=== PATIENT | female | born 1955 | race Caucasian/White ===

== ENCOUNTER 2019-12-02 08:15 | Inpatient (IN) ==
[2019-12-02] MEDS ORDERED: Ondansetron 4 MG/2 ML VIAL IVP ONE (08:27)
[2019-12-02] MEDS ORDERED: 0.9 % Sodium Chloride 1,000 ML IVC ONE (08:27)
[2019-12-02] MEDS ORDERED: Morphine Sulfate 2 MG/ML SYRINGE IVP ONE ×3 (08:27→21:07)
[2019-12-02 08:42] LABS: Basophils # 0.2 K/mcL (0.0-0.2); Basophils % 0.7 %; Eosinophils # 0.1 K/mcL (0.0-0.6); Eosinophils % 0.4 %; Hemoglobin 8.9 g/dL (11.5-15.4); Lymphocytes # 0.7 K/mcL (0.6-4.6); Mean Corpuscular HGB Conc 29.7 g/dL (31.6-35.5); Mean Corpuscular Hemoglobin 26.7 pg (28.0-33.3); Mean Corpuscular Volume 90.1 fL (83.0-100.0); Mean Platelet Volume 9.5 fL (9.4-12.4); Monocytes # 1.3 K/mcL (0.0-1.3); Neutrophils # 19.6 K/mcL (1.6-8.9); Platelet Count 541 K/mcL (140-400); Red Blood Count 3.33 M/mcL (3.82-4.97); Red Cell Distribution Width 14.7 % (11.5-14.5); Segmented Neutrophils % 88.9 %
[2019-12-02] MEDS ORDERED: Isovue-370 500 ML BOTTLE IVP ONE (08:51)
[2019-12-02 09:02] LABS: Albumin 3.2 g/dL (3.5-5.7); Albumin/Globulin Ratio 1.1 (1.1-2.2); Bilirubin,Indirect 0.3 mg/dL (0.0-1.0); Bilirubin,Total 0.3 mg/dL (0.3-1.0); Calcium 10.4 mg/dL (8.6-10.3); Globulin 2.9 g/dL (2.4-3.5); Total Protein 6.1 g/dL (6.4-8.9); Troponin I 0.2 ng/mL (< 0.04)
[2019-12-02 09:05] LABS: Bilirubin,Urine Negative (Negative); Blood,Urine Negative (Negative); Clarity,Urine Clear (Clear); Color,Urine Light-Yellow (Yellow); Glucose,Urine (UA) >=1000 mg/dL (Normal); Hyaline Casts,Urine Few per lpf (None Seen); Ketones,Urine 10 mg/dL (Negative); Leukocyte Esterase,Urine Trace (Negative); Mucus,Urine Few per lpf (None-Few); Nitrite,Urine Negative (Negative); Protein,Urine 50 mg/dL (Neg-Trace); RBC,Urine 0-3 per hpf (0-3); Renal Epithelial Cells,Urine Moderate per hpf (None-Few); Specific Gravity,Urine 1.019 (1.010-1.025); Squamous Epithelial Cell,Urine Few per hpf (None-Few); Urobilinogen,Urine Normal (Normal)
[2019-12-02] MEDS ORDERED: Aspirin 325 MG TABLET PO ONE (09:13)
[2019-12-02] MEDS ORDERED: Morphine Sulfate 2 MG/ML SYRINGE ONE (11:47)
[2019-12-02] MEDS ORDERED: Naloxone 0.4 MG/ML INJ IVP PRN (11:58)
[2019-12-02] MEDS ORDERED: diazePAM 2 MG TABLET PO PRN (12:00)
[2019-12-02] MEDS ORDERED: *HR* HYDROmorphone 2 MG TABLET PO PRN (12:00)
[2019-12-02] MEDS ORDERED: *HR* FentaNYL PATCH 50 MCG PATCH TD SCH (12:00)
[2019-12-02] MEDS ORDERED: D5% in Water 1,000 ML IVC PRN (12:52)
[2019-12-02] MEDS ORDERED: *HR* Dextrose 50 % in Water (Vial) 50 ML VIAL IVP PRN (12:52)
[2019-12-02] MEDS ORDERED: Dextrose Gel 15 GM/37.5 ML TUBE PO PRN ×2 (12:52)
[2019-12-02] MEDS ORDERED: Insulin DETEMIR 100 UNIT/ML X5UNITS SQ ONE (13:23)
[2019-12-02] MEDS: PATIENT TAKING SQ SCH (13:58)
[2019-12-02] MEDS ORDERED: *HR* Heparin 5,000 UNIT/ML VIAL IVP ONE (14:53)
[2019-12-02] MEDS ORDERED: *HR* Heparin 5,000 UNIT/ML VIAL IVP PRN ×2 (14:53)
[2019-12-02 14:56] LABS: Carcinoembryonic Antigen 836.4 ng/mL (Less than 5.0); Iron < 10 mcg/dL (50-170); Transferrin 228 mg/dL (203-362)
[2019-12-02] MEDS: Heparin 25,000 UNIT/250 ML D5W 25,000 UNIT/250 ML IV.SOLN IVC SCH (16:46)
[2019-12-02] MEDS: Piperacillin/Tazobactam 3.375 GM in 0.9 % Sodium Chloride Mini Bag 100 ML IVPB SCH ×2 (16:51→23:42)
[2019-12-02] MEDS ORDERED: SODIUM CHLORIDE/NAHCO3/KCL/PEG 4,000 ML SOLN.RECON PO ONE (17:00)
[2019-12-02] MEDS: Ringers Solution, Lactated 1,000 ML IVC SCH (21:00)
[2019-12-02] MEDS ORDERED: *HR* HYDROmorphone 2 MG TABLET PO ONE (21:00)
[2019-12-02] MEDS: rOPINIRole 1 MG TABLET PO SCH (21:21)
[2019-12-02] MEDS: traZODone 50 MG TABLET PO SCH (21:21)
[2019-12-02] MEDS ORDERED: Aspirin 81 MG TAB.CHEW PO ONE (23:25)
[2019-12-03 00:16] LABS: Acinetobacter baumannii by PCR Not Detected (Not Detect); Candida albicans by PCR Not Detected (Not Detect); Candida glabrata by PCR Not Detected (Not Detect); Candida krusei by PCR Not Detected (Not Detect); Candida parapsilosis by PCR Not Detected (Not Detect); Candida tropicalis by PCR Not Detected (Not Detect); Enterobacter cloacae Cmplx PCR Not Detected (Not Detect); Enterobacteriaceae by PCR Not Detected (Not Detect); Enterococcus by PCR Not Detected (Not Detect); Escherichia coli by PCR Not Detected (Not Detect); Klebsiella oxytoca by PCR Not Detected (Not Detect); Klebsiella pneumoniae by PCR Not Detected (Not Detect); Proteus by PCR Not Detected (Not Detect); Pseudomonas aeruginosa by PCR Not Detected (Not Detect); Serratia marcescens by PCR Not Detected (Not Detect); Staphylococcus aureus by PCR Not Detected (Not Detect); Staphylococcus by PCR Not Detected (Not Detect); Streptococcus agalactiae(B)PCR Not Detected (Not Detect); Streptococcus by PCR DETECTED (Not Detect); Streptococcus pneumoniae PCR Not Detected (Not Detect); Streptococcus pyogenes (A) PCR Not Detected (Not Detect); blaKPC Carbapenem-Resist Gene Not Detected (Not Detect); mecA Methicillin-Resist Gene Not Detected (Not Detect); vanA/B Vancomycin-Resist Genes Not Detected (Not Detect)
[2019-12-03] MEDS ORDERED: Morphine Sulfate 2 MG/ML SYRINGE IVP ONE (01:32)
[2019-12-03 01:34] LABS: Basophils # 0.2 K/mcL (0.0-0.2); Basophils % 0.8 %; Eosinophils # 0.2 K/mcL (0.0-0.6); Eosinophils % 0.9 %; Hematocrit 30.4 % (35.3-44.9); Hemoglobin 9.1 g/dL (11.5-15.4); Immature Granulocytes % 0.7 % (0-4); Lymphocytes # 1.9 K/mcL (0.6-4.6); Lymphocytes % 8.3 %; Mean Corpuscular HGB Conc 29.9 g/dL (31.6-35.5); Mean Corpuscular Hemoglobin 26.6 pg (28.0-33.3); Mean Corpuscular Volume 88.9 fL (83.0-100.0); Mean Platelet Volume 9.3 fL (9.4-12.4); Monocytes # 1.7 K/mcL (0.0-1.3); Monocytes % 7.7 %; Neutrophils # 18.3 K/mcL (1.6-8.9); Platelet Count 616 K/mcL (140-400); Red Blood Count 3.42 M/mcL (3.82-4.97); Red Cell Distribution Width 14.6 % (11.5-14.5); Segmented Neutrophils % 81.6 %; White Blood Count 22.4 K/mcL (4.3-11.1)
[2019-12-03 01:47] LABS: Prothrombin Time 11.3 Seconds (9.4-12.1)
[2019-12-03 01:49] LABS: Calcium 9.6 mg/dL (8.6-10.3); Magnesium 1.9 mg/dL (1.6-2.6); Potassium 4.1 mEq/L (3.5-5.1)
[2019-12-03 02:17] LABS: Folate > 22.3 ng/mL (3.0-16.0); Vitamin B12 1247 pg/mL (250-1100)
[2019-12-03] MEDS: D5% in 0.9% NACL 1,000 ML IVC SCH (06:03)
[2019-12-03] MEDS: Ringers Solution, Lactated 1,000 ML IVC SCH (06:04)
[2019-12-03] MEDS: Ondansetron 4 MG/2 ML VIAL IVP PRN (10:05)
[2019-12-03] MEDS: predniSONE 10 MG TABLET PO SCH (10:36)
[2019-12-03] MEDS: Piperacillin/Tazobactam 3.375 GM in 0.9 % Sodium Chloride Mini Bag 100 ML IVPB SCH ×2 (10:38→17:30)
[2019-12-03] MEDS: Morphine Sulfate 2 MG/ML SYRINGE IVP PRN ×3 (11:05→21:34)
[2019-12-03] MEDS: PATIENT TAKING SQ SCH (12:11)
[2019-12-03] MEDS: Aspirin Enteric Coated 81 MG Tablet PO SCH (16:03)
[2019-12-03] MEDS: Insulin LISPRO 300 UNITS/3 ML VIAL SQ SCH ×2 (17:37→17:44)
[2019-12-03] MEDS ORDERED: Insulin LISPRO 300 UNITS/3 ML VIAL SQ SCH (21:00)
[2019-12-03] MEDS: traZODone 50 MG TABLET PO SCH (21:38)
[2019-12-03] MEDS: rOPINIRole 1 MG TABLET PO SCH (21:56)
[2019-12-04] MEDS: Piperacillin/Tazobactam 3.375 GM in 0.9 % Sodium Chloride Mini Bag 100 ML IVPB SCH ×3 (01:01→18:11)
[2019-12-04 02:06] LABS: Basophils # 0.1 K/mcL (0.0-0.2); Basophils % 0.6 %; Eosinophils # 0.1 K/mcL (0.0-0.6); Eosinophils % 0.4 %; Hematocrit 27.3 % (35.3-44.9); Hemoglobin 8.2 g/dL (11.5-15.4); Immature Granulocytes % 0.8 % (0-4); Mean Corpuscular Hemoglobin 26.7 pg (28.0-33.3); Mean Corpuscular Volume 88.9 fL (83.0-100.0); Mean Platelet Volume 9.4 fL (9.4-12.4); Monocytes # 1.1 K/mcL (0.0-1.3); Monocytes % 6.9 %; Neutrophils # 14.1 K/mcL (1.6-8.9); Platelet Count 543 K/mcL (140-400); Red Blood Count 3.07 M/mcL (3.82-4.97); Red Cell Distribution Width 14.6 % (11.5-14.5); Segmented Neutrophils % 85.3 %; White Blood Count 16.5 K/mcL (4.3-11.1)
[2019-12-04 02:23] LABS: Calcium 8.4 mg/dL (8.6-10.3); Magnesium 1.8 mg/dL (1.6-2.6); Phosphorous 2.2 mg/dL (2.7-4.5); Potassium 3.9 mEq/L (3.5-5.1)
[2019-12-04] MEDS: D5% in 0.9% NACL 1,000 ML IVC SCH ×2 (03:15→22:49)
[2019-12-04] MEDS: Heparin 25,000 UNIT/250 ML D5W 25,000 UNIT/250 ML IV.SOLN IVC SCH ×2 (03:16→10:26)
[2019-12-04] MEDS: Morphine Sulfate 2 MG/ML SYRINGE IVP PRN ×2 (04:56→10:59)
[2019-12-04] MEDS: Aspirin Enteric Coated 81 MG Tablet PO SCH (08:37)
[2019-12-04] MEDS: predniSONE 10 MG TABLET PO SCH (08:37)
[2019-12-04] MEDS: Insulin LISPRO 300 UNITS/3 ML VIAL SQ SCH ×3 (08:38→18:12)
[2019-12-04] MEDS ORDERED: Spironolactone 25 MG TABLET PO SCH (09:00)
[2019-12-04] MEDS: Ondansetron 4 MG/2 ML VIAL IVP PRN (11:09)
[2019-12-04] MEDS ORDERED: Morphine Sulfate Oral CONC 10 MG/0.5 ML ORAL.SYG SL PRN ×2 (11:20→20:42)
[2019-12-04] MEDS ORDERED: *HR* FentaNYL PATCH 75 MCG PATCH TD SCH ×2 (12:00→20:30)
[2019-12-04] MEDS ORDERED: *HR* FentaNYL (PF) 100 MCG/2 ML VIAL ONE ×2 (12:55→17:49)
[2019-12-04] MEDS ORDERED: 0.9 % Sodium Chloride 500 ML ONE (12:56)
[2019-12-04] MEDS ORDERED: *HR* Midazolam HCl 2 MG/2 ML VIAL ONE (12:56)
[2019-12-04] MEDS ORDERED: *HR* FentaNYL (PF) 100 MCG/2 ML VIAL IVP ONE (13:01)
[2019-12-04] MEDS ORDERED: *HR* Midazolam HCl 2 MG/2 ML VIAL IVP ONE (13:01)
[2019-12-04] MEDS ORDERED: Lidocaine -MPF 2% 2 ML VIAL ONE ×2 (13:56→17:49)
[2019-12-04] MEDS ORDERED: *HR* EPINEPHrine 1 MG/10 ML SYRINGE ONE (13:57)
[2019-12-04] MEDS: PATIENT TAKING SQ SCH (16:24)
[2019-12-04] MEDS ORDERED: CefOXitin 1,000 MG VIAL ONE (17:21)
[2019-12-04] MEDS ORDERED: Ondansetron 4 MG/2 ML VIAL ONE (17:49)
[2019-12-04] MEDS ORDERED: *HR* Propofol 200 MG/20 ML VIAL IVP ONE (17:49)
[2019-12-04] MEDS ORDERED: *HR* Succinylcholine 200 MG/10 ML VIAL IVP ONE (17:49)
[2019-12-04] MEDS ORDERED: Dexamethasone 4 MG/ML VIAL ONE (17:49)
[2019-12-04] MEDS ORDERED: *HR* Rocuronium Bromide 50 MG/5 ML VIAL ONE (17:49)
[2019-12-04] MEDS ORDERED: *HR* HYDROMORPHONE 2 MG/ML VIAL ONE (17:51)
[2019-12-04] MEDS ORDERED: *HR* PHENYLEPHRINE 1,000 MCG/10 ML SYRINGE IVP ONE (17:52)
[2019-12-04] MEDS ORDERED: Heparin 1,000 UNITS/500 mL 500 ML ONE (17:56)
[2019-12-04] MEDS ORDERED: Ondansetron 4 MG/2 ML VIAL IVP ONE ×2 (19:15→20:42)
[2019-12-04] MEDS ORDERED: *HR* Promethazine 25 MG/ML VIAL IVP PRN ×2 (19:15→20:42)
[2019-12-04] MEDS: *HR* HYDROmorphone PF 0.5 MG/0.5 ML SYRINGE IVP PRN ×2 (19:53→20:03)
[2019-12-04] MEDS ORDERED: Ondansetron 4 MG/2 ML VIAL IVP PRN (20:42)
[2019-12-04] MEDS ORDERED: *HR* Dextrose 50 % in Water (Vial) 50 ML VIAL IVP PRN (20:42)
[2019-12-04] MEDS ORDERED: Dextrose Gel 15 GM/37.5 ML TUBE PO PRN ×2 (20:42)
[2019-12-04] MEDS ORDERED: diazePAM 2 MG TABLET PO PRN (20:42)
[2019-12-04] MEDS ORDERED: Naloxone 0.4 MG/ML INJ IVP PRN (20:42)
[2019-12-04] MEDS ORDERED: D5% in Water 1,000 ML IVC PRN (20:42)
[2019-12-04] MEDS ORDERED: *HR* HYDROmorphone PF 0.5 MG/0.5 ML SYRINGE IVP PRN (20:42)
[2019-12-04] MEDS ORDERED: Insulin LISPRO 300 UNITS/3 ML VIAL SQ SCH (21:00)
[2019-12-04] MEDS ORDERED: Metoprolol XL (24 HR) Succ 25 MG TAB.ER.24H PO SCH ×2 (21:00)
[2019-12-04] MEDS: INSULIN PUMP SQ SCH (22:12)
[2019-12-04] MEDS: traZODone 50 MG TABLET PO SCH (23:05)
[2019-12-04] MEDS: rOPINIRole 1 MG TABLET PO SCH (23:05)
[2019-12-04] MEDS: *HR* FentaNYL PATCH 75 MCG PATCH TD SCH (23:57)
[2019-12-05] MEDS: Insulin DETEMIR 100 UNIT/ML X5UNITS SQ SCH ×2 (00:09→20:04)
[2019-12-05] MEDS: Insulin LISPRO 300 UNITS/3 ML VIAL SQ SCH ×5 (00:10→23:58)
[2019-12-05] MEDS: *HR* Metoprolol 5 MG/5 ML VIAL IVP SCH ×2 (00:11→06:00)
[2019-12-05] MEDS: Piperacillin/Tazobactam 3.375 GM in 0.9 % Sodium Chloride Mini Bag 100 ML IVPB SCH ×4 (00:16→23:59)
[2019-12-05 03:20] LABS: Basophils % 0.2 %; Lymphocytes % 2.9 %; Mean Platelet Volume 9.4 fL (9.4-12.4); Monocytes % 5.2 %; Red Cell Distribution Width 14.6 % (11.5-14.5)
[2019-12-05 03:22] LABS: Hematocrit 27.3 % (35.3-44.9); Hemoglobin 7.8 g/dL (11.5-15.4); Immature Granulocytes % 0.7 % (0-4); Lymphocytes # 0.7 K/mcL (0.6-4.6); Mean Corpuscular HGB Conc 28.6 g/dL (31.6-35.5); Mean Corpuscular Hemoglobin 26.9 pg (28.0-33.3); Mean Corpuscular Volume 94.1 fL (83.0-100.0); Monocytes # 1.2 K/mcL (0.0-1.3); Neutrophils # 20.3 K/mcL (1.6-8.9); Platelet Count 450 K/mcL (140-400); White Blood Count 22.3 K/mcL (4.3-11.1)
[2019-12-05 03:37] LABS: Calcium 7.8 mg/dL (8.6-10.3); Potassium 4.2 mEq/L (3.5-5.1)
[2019-12-05 04:15] LABS: Hypochromasia Present (Not Present); Platelet Estimate Increased (Normal)
[2019-12-05] MEDS ORDERED: Insulin LISPRO 300 UNITS/3 ML VIAL SQ SCH (07:30)
[2019-12-05] MEDS: predniSONE 10 MG TABLET PO SCH (07:53)
[2019-12-05] MEDS: Aspirin Enteric Coated 81 MG Tablet PO SCH (07:53)
[2019-12-05] MEDS: Metoprolol XL (24 HR) Succ 25 MG TAB.ER.24H PO SCH (07:54)
[2019-12-05] MEDS ORDERED: Spironolactone 25 MG TABLET PO SCH (09:00)
[2019-12-05] MEDS ORDERED: predniSONE 10 MG TABLET PO SCH (09:00)
[2019-12-05] MEDS ORDERED: Prochlorperazine 10 MG/2 ML VIAL IVP ONE (09:30)
[2019-12-05] MEDS: Morphine Sulfate Oral CONC 10 MG/0.5 ML ORAL.SYG SL PRN (09:39)
[2019-12-05] MEDS: D5% in 0.9% NACL 1,000 ML IVC SCH (19:20)
[2019-12-05] MEDS: INSULIN PUMP SQ SCH (20:05)
[2019-12-05] MEDS: rOPINIRole 1 MG TABLET PO SCH (20:08)
[2019-12-05] MEDS: traZODone 50 MG TABLET PO SCH (20:09)
[2019-12-06] MEDS: Morphine Sulfate Oral CONC 10 MG/0.5 ML ORAL.SYG SL PRN ×4 (00:05→23:15)
[2019-12-06 01:26] LABS: Basophils # 0.1 K/mcL (0.0-0.2); Basophils % 0.4 %; Eosinophils % 0.1 %; Hematocrit 27.3 % (35.3-44.9); Immature Granulocytes % 0.7 % (0-4); Lymphocytes # 0.8 K/mcL (0.6-4.6); Lymphocytes % 3.8 %; Mean Corpuscular HGB Conc 29.3 g/dL (31.6-35.5); Mean Corpuscular Hemoglobin 26.7 pg (28.0-33.3); Mean Platelet Volume 9.4 fL (9.4-12.4); Monocytes # 1.4 K/mcL (0.0-1.3); Monocytes % 6.5 %; Neutrophils # 18.8 K/mcL (1.6-8.9); Platelet Count 627 K/mcL (140-400); Red Cell Distribution Width 14.9 % (11.5-14.5); Segmented Neutrophils % 88.5 %; White Blood Count 21.3 K/mcL (4.3-11.1)
[2019-12-06 01:50] LABS: Calcium 7.5 mg/dL (8.6-10.3); Phosphorous 1.9 mg/dL (2.7-4.5); Potassium 4.7 mEq/L (3.5-5.1)
[2019-12-06] MEDS: Insulin LISPRO 300 UNITS/3 ML VIAL SQ SCH ×3 (06:04→17:09)
[2019-12-06] MEDS: Metoprolol XL (24 HR) Succ 25 MG TAB.ER.24H PO SCH (08:52)
[2019-12-06] MEDS: Aspirin Enteric Coated 81 MG Tablet PO SCH (08:52)
[2019-12-06] MEDS: predniSONE 10 MG TABLET PO SCH (08:53)
[2019-12-06] MEDS: Piperacillin/Tazobactam 3.375 GM in 0.9 % Sodium Chloride Mini Bag 100 ML IVPB SCH ×3 (08:55→23:16)
[2019-12-06] MEDS: D5% in 0.9% NACL 1,000 ML IVC SCH (15:25)
[2019-12-06] MEDS: Insulin DETEMIR 100 UNIT/ML X5UNITS SQ SCH (21:25)
[2019-12-06] MEDS: traZODone 50 MG TABLET PO SCH (21:26)
[2019-12-06] MEDS: rOPINIRole 1 MG TABLET PO SCH (21:27)
[2019-12-07 00:49] LABS: Basophils # 0.1 K/mcL (0.0-0.2); Basophils % 0.4 %; Eosinophils # 0.1 K/mcL (0.0-0.6); Eosinophils % 0.4 %; Hematocrit 26.9 % (35.3-44.9); Hemoglobin 7.9 g/dL (11.5-15.4); Immature Granulocytes % 0.6 % (0-4); Lymphocytes # 0.8 K/mcL (0.6-4.6); Mean Corpuscular HGB Conc 29.4 g/dL (31.6-35.5); Mean Corpuscular Hemoglobin 26.7 pg (28.0-33.3); Mean Corpuscular Volume 90.9 fL (83.0-100.0); Mean Platelet Volume 9.2 fL (9.4-12.4); Monocytes # 1.7 K/mcL (0.0-1.3); Monocytes % 7.9 %; Neutrophils # 18.4 K/mcL (1.6-8.9); Platelet Count 573 K/mcL (140-400); Red Blood Count 2.96 M/mcL (3.82-4.97); Red Cell Distribution Width 14.7 % (11.5-14.5); Segmented Neutrophils % 86.7 %; White Blood Count 21.2 K/mcL (4.3-11.1)
[2019-12-07 01:07] LABS: Calcium 7.5 mg/dL (8.6-10.3); Potassium 3.9 mEq/L (3.5-5.1)
[2019-12-07] MEDS: Insulin LISPRO 300 UNITS/3 ML VIAL SQ SCH ×4 (02:40→18:09)
[2019-12-07] MEDS: INSULIN PUMP SQ SCH (08:12)
[2019-12-07] MEDS: Piperacillin/Tazobactam 3.375 GM in 0.9 % Sodium Chloride Mini Bag 100 ML IVPB SCH ×3 (08:25→23:24)
[2019-12-07] MEDS: predniSONE 10 MG TABLET PO SCH (08:27)
[2019-12-07] MEDS: Metoprolol XL (24 HR) Succ 25 MG TAB.ER.24H PO SCH (08:27)
[2019-12-07] MEDS: Aspirin Enteric Coated 81 MG Tablet PO SCH (08:27)
[2019-12-07] MEDS ORDERED: Furosemide 20 MG/2 ML VIAL IVP ONE ×2 (10:16→18:00)
[2019-12-07] MEDS: Ondansetron 4 MG/2 ML VIAL IVP PRN (16:25)
[2019-12-07] MEDS ORDERED: *HR* FentaNYL PATCH 75 MCG PATCH TD SCH (20:30)
[2019-12-07] MEDS ORDERED: Insulin DETEMIR 100 UNIT/ML X5UNITS SQ SCH ×2 (21:00)
[2019-12-07] MEDS: rOPINIRole 1 MG TABLET PO SCH (21:08)
[2019-12-07] MEDS: traZODone 50 MG TABLET PO SCH (21:08)
[2019-12-07] MEDS: Morphine Sulfate Oral CONC 10 MG/0.5 ML ORAL.SYG SL PRN (22:16)
[2019-12-07] MEDS: *HR* FentaNYL PATCH 75 MCG PATCH TD SCH (23:21)
[2019-12-08 02:17] LABS: Basophils # 0.1 K/mcL (0.0-0.2); Basophils % 0.3 %; Eosinophils # 0.2 K/mcL (0.0-0.6); Eosinophils % 0.9 %; Hematocrit 24.8 % (35.3-44.9); Hemoglobin 7.3 g/dL (11.5-15.4); Immature Granulocytes % 0.6 % (0-4); Lymphocytes # 0.9 K/mcL (0.6-4.6); Lymphocytes % 4.9 %; Mean Corpuscular HGB Conc 29.4 g/dL (31.6-35.5); Mean Corpuscular Hemoglobin 26.3 pg (28.0-33.3); Mean Corpuscular Volume 89.2 fL (83.0-100.0); Mean Platelet Volume 9.3 fL (9.4-12.4); Monocytes # 1.4 K/mcL (0.0-1.3); Neutrophils # 15.2 K/mcL (1.6-8.9); Platelet Count 612 K/mcL (140-400); Red Blood Count 2.78 M/mcL (3.82-4.97); Red Cell Distribution Width 14.8 % (11.5-14.5); Segmented Neutrophils % 85.3 %; White Blood Count 17.8 K/mcL (4.3-11.1)
[2019-12-08 02:33] LABS: Albumin 2.4 g/dL (3.5-5.7); Albumin/Globulin Ratio 0.9 (1.1-2.2); Bilirubin,Total 0.2 mg/dL (0.3-1.0); Calcium 7.3 mg/dL (8.6-10.3); Globulin 2.6 g/dL (2.4-3.5); Potassium 3.4 mEq/L (3.5-5.1)
[2019-12-08] MEDS ORDERED: Albumin 25% 25gram/100mL 25 GM/100 ML IV.SOLN IVPB ONE (07:10)
[2019-12-08] MEDS: Metoprolol XL (24 HR) Succ 25 MG TAB.ER.24H PO SCH (10:20)
[2019-12-08] MEDS: predniSONE 10 MG TABLET PO SCH (10:20)
[2019-12-08] MEDS: Aspirin Enteric Coated 81 MG Tablet PO SCH (10:21)
[2019-12-08] MEDS: Insulin LISPRO 300 UNITS/3 ML VIAL SQ SCH ×2 (10:21)
[2019-12-08] MEDS ORDERED: Furosemide 40 MG/4 ML VIAL IVP ONE (10:44)
[2019-12-08] MEDS ORDERED: Potassium Chloride Elixir 20 MEQ/15 ML UDC PO ONE (10:54)
[2019-12-08] MEDS: Ondansetron 4 MG/2 ML VIAL IVP PRN ×3 (12:23→21:34)
[2019-12-08] MEDS: Morphine Sulfate Oral CONC 10 MG/0.5 ML ORAL.SYG SL PRN (12:39)
[2019-12-08] MEDS: Piperacillin/Tazobactam 3.375 GM in 0.9 % Sodium Chloride Mini Bag 100 ML IVPB SCH ×2 (12:40→21:35)
[2019-12-08] MEDS ORDERED: *HR* Promethazine 25 MG/ML VIAL IVP ONE (19:17)
[2019-12-08] MEDS ORDERED: *HR* Promethazine 25 MG/ML VIAL IVP PRN (19:40)
[2019-12-08] MEDS: traZODone 50 MG TABLET PO SCH (21:34)
[2019-12-08] MEDS: rOPINIRole 1 MG TABLET PO SCH (21:34)
[2019-12-09 03:22] LABS: Hemoglobin 8.4 g/dL (11.5-15.4); Lymphocytes % 8.2 %; Mean Platelet Volume 9.5 fL (9.4-12.4)
[2019-12-09 03:23] LABS: Basophils # 0.1 K/mcL (0.0-0.2); Basophils % 0.4 %; Eosinophils # 0.2 K/mcL (0.0-0.6); Eosinophils % 0.9 %; Hematocrit 28.2 % (35.3-44.9); Immature Granulocytes % 0.5 % (0-4); Lymphocytes # 1.5 K/mcL (0.6-4.6); Mean Corpuscular HGB Conc 29.8 g/dL (31.6-35.5); Mean Corpuscular Hemoglobin 26.5 pg (28.0-33.3); Monocytes # 1.3 K/mcL (0.0-1.3); Monocytes % 7.4 %; Neutrophils # 14.9 K/mcL (1.6-8.9); Nucleated Red Blood Cells 0.2 /100 WBC (0); Platelet Count 788 K/mcL (140-400); Red Blood Count 3.17 M/mcL (3.82-4.97); Red Cell Distribution Width 14.7 % (11.5-14.5); Segmented Neutrophils % 82.6 %
[2019-12-09 03:47] LABS: Hypochromasia Present (Not Present); Platelet Estimate Increased (Normal)
[2019-12-09 04:01] LABS: Alanine Aminotransferase 59 Units/L (7-52); Albumin 3.2 g/dL (3.5-5.7); Albumin/Globulin Ratio 1.1 (1.1-2.2); Alkaline Phosphatase 166 Units/L (34-104); Aspartate Amino Transferase 115 Units/L (13-39); BUN/Creatinine Ratio 11 (6-26); Bilirubin,Total 0.3 mg/dL (0.3-1.0); Blood Urea Nitrogen 15 mg/dL (8-23); Calcium 8.2 mg/dL (8.6-10.3); Carbon Dioxide 23 mEq/L (23-29); Chloride 104 mEq/L (98-107); Ferritin 39 ng/mL (10-120); Globulin 2.8 g/dL (2.4-3.5); Glucose 68 mg/dL (70-105); Iron < 10 mcg/dL (50-170); Osmolality,Calculated 287 (280-300); Potassium 3.8 mEq/L (3.5-5.1); Sodium 139 mEq/L (136-145); Transferrin 200 mg/dL (203-362); eGFR For African Americans 47 (> 60); eGFR For Non-African Americans 38 (> 60)
[2019-12-09 04:07] LABS: Folate > 22.3 ng/mL (3.0-16.0); Vitamin B12 > 1500 pg/mL (250-1100)
[2019-12-09] MEDS: Piperacillin/Tazobactam 3.375 GM in 0.9 % Sodium Chloride Mini Bag 100 ML IVPB SCH ×3 (04:48→20:01)
[2019-12-09] MEDS: Ondansetron 4 MG/2 ML VIAL IVP PRN (04:48)
[2019-12-09] MEDS: INSULIN PUMP SQ SCH ×2 (05:08→20:00)
[2019-12-09] MEDS ORDERED: Iron Sucrose Complex 400 MG in 0.9 % Sodium Chloride 250 ML IVPB ONE (07:23)
[2019-12-09] MEDS: Aspirin Enteric Coated 81 MG Tablet PO SCH (09:39)
[2019-12-09] MEDS: Metoprolol XL (24 HR) Succ 25 MG TAB.ER.24H PO SCH (09:39)
[2019-12-09] MEDS: predniSONE 10 MG TABLET PO SCH (09:39)
[2019-12-09] MEDS ORDERED: Furosemide 20 MG/2 ML VIAL IVP ONE (10:33)
[2019-12-09] MEDS: *HR* FentaNYL PATCH 75 MCG PATCH TD SCH (14:43)
[2019-12-09] MEDS: Morphine Sulfate Oral CONC 10 MG/0.5 ML ORAL.SYG SL PRN (15:24)
[2019-12-09] MEDS: traZODone 50 MG TABLET PO SCH (20:04)
[2019-12-09] MEDS: rOPINIRole 1 MG TABLET PO SCH (20:05)
[2019-12-10 02:12] LABS: Basophils # 0.1 K/mcL (0.0-0.2); Basophils % 0.4 %; Eosinophils # 0.2 K/mcL (0.0-0.6); Eosinophils % 1.2 %; Hematocrit 25.3 % (35.3-44.9); Hemoglobin 7.7 g/dL (11.5-15.4); Immature Granulocytes % 0.8 % (0-4); Lymphocytes # 1.1 K/mcL (0.6-4.6); Lymphocytes % 5.7 %; Mean Corpuscular HGB Conc 30.4 g/dL (31.6-35.5); Mean Corpuscular Hemoglobin 25.9 pg (28.0-33.3); Mean Corpuscular Volume 85.2 fL (83.0-100.0); Mean Platelet Volume 9.5 fL (9.4-12.4); Monocytes # 1.6 K/mcL (0.0-1.3); Monocytes % 8.4 %; Neutrophils # 16.4 K/mcL (1.6-8.9); Nucleated Red Blood Cells 1.1 /100 WBC (0); Platelet Count 697 K/mcL (140-400); Red Blood Count 2.97 M/mcL (3.82-4.97); Red Cell Distribution Width 14.7 % (11.5-14.5); Segmented Neutrophils % 83.5 %; White Blood Count 19.6 K/mcL (4.3-11.1)
[2019-12-10] MEDS: Morphine Sulfate Oral CONC 10 MG/0.5 ML ORAL.SYG SL PRN ×2 (02:30→19:38)
[2019-12-10 02:35] LABS: Albumin 2.7 g/dL (3.5-5.7); Albumin/Globulin Ratio 1.1 (1.1-2.2); Bilirubin,Total 0.2 mg/dL (0.3-1.0); Calcium 8.1 mg/dL (8.6-10.3); Globulin 2.4 g/dL (2.4-3.5); Potassium 3.6 mEq/L (3.5-5.1); Total Protein 5.1 g/dL (6.4-8.9)
[2019-12-10] MEDS: Piperacillin/Tazobactam 3.375 GM in 0.9 % Sodium Chloride Mini Bag 100 ML IVPB SCH ×3 (05:40→22:16)
[2019-12-10] MEDS: Metoprolol XL (24 HR) Succ 25 MG TAB.ER.24H PO SCH (09:27)
[2019-12-10] MEDS: Aspirin Enteric Coated 81 MG Tablet PO SCH (09:28)
[2019-12-10] MEDS: predniSONE 10 MG TABLET PO SCH (09:28)
[2019-12-10] MEDS ORDERED: Iron Sucrose Complex 200 MG in 0.9 % Sodium Chloride 100 ML IVPB SCH (12:15)
[2019-12-10] MEDS: rOPINIRole 1 MG TABLET PO SCH (19:37)
[2019-12-10] MEDS: INSULIN PUMP SQ SCH (19:37)
[2019-12-10] MEDS: traZODone 50 MG TABLET PO SCH (19:38)
[2019-12-10] MEDS: Iron Sucrose Complex 200 MG in 0.9 % Sodium Chloride 100 ML IVPB SCH (21:06)
[2019-12-11 03:06] LABS: Basophils # 0.1 K/mcL (0.0-0.2); Basophils % 0.3 %; Eosinophils # 0.1 K/mcL (0.0-0.6); Eosinophils % 0.3 %; Hematocrit 27.6 % (35.3-44.9); Hemoglobin 8.3 g/dL (11.5-15.4); Immature Granulocytes % 1.4 % (0-4); Lymphocytes # 1.2 K/mcL (0.6-4.6); Mean Corpuscular HGB Conc 30.1 g/dL (31.6-35.5); Mean Corpuscular Hemoglobin 26.8 pg (28.0-33.3); Mean Platelet Volume 9.8 fL (9.4-12.4); Monocytes % 8.3 %; Neutrophils # 20.3 K/mcL (1.6-8.9); Nucleated Red Blood Cells 2.7 /100 WBC (0); Platelet Count 734 K/mcL (140-400); Red Cell Distribution Width 14.9 % (11.5-14.5); Segmented Neutrophils % 84.7 %
[2019-12-11 03:12] LABS: Calcium 8.7 mg/dL (8.6-10.3); Potassium 4.2 mEq/L (3.5-5.1)
[2019-12-11] MEDS: Piperacillin/Tazobactam 3.375 GM in 0.9 % Sodium Chloride Mini Bag 100 ML IVPB SCH ×3 (05:18→21:04)
[2019-12-11] MEDS: predniSONE 10 MG TABLET PO SCH (08:29)
[2019-12-11] MEDS: Aspirin Enteric Coated 81 MG Tablet PO SCH (08:29)
[2019-12-11] MEDS: Metoprolol XL (24 HR) Succ 25 MG TAB.ER.24H PO SCH (08:29)
[2019-12-11] MEDS: Morphine Sulfate Oral CONC 10 MG/0.5 ML ORAL.SYG SL PRN (14:11)
[2019-12-11] MEDS: Iron Sucrose Complex 200 MG in 0.9 % Sodium Chloride 100 ML IVPB SCH (20:06)
[2019-12-11] MEDS: INSULIN PUMP SQ SCH (20:07)
[2019-12-11] MEDS: rOPINIRole 1 MG TABLET PO SCH (20:10)
[2019-12-11] MEDS: traZODone 50 MG TABLET PO SCH (21:05)
[2019-12-12] MEDS: Piperacillin/Tazobactam 3.375 GM in 0.9 % Sodium Chloride Mini Bag 100 ML IVPB SCH ×3 (05:19→21:02)
[2019-12-12 07:05] LABS: Hematocrit 26.4 % (35.3-44.9); Hemoglobin 8.1 g/dL (11.5-15.4); Mean Corpuscular HGB Conc 30.7 g/dL (31.6-35.5); Mean Corpuscular Hemoglobin 27.5 pg (28.0-33.3); Mean Corpuscular Volume 89.5 fL (83.0-100.0); Mean Platelet Volume 9.8 fL (9.4-12.4); Nucleated Red Blood Cells 6.7 /100 WBC (0); Platelet Count 702 K/mcL (140-400); Red Blood Count 2.95 M/mcL (3.82-4.97); Red Cell Distribution Width 14.9 % (11.5-14.5); White Blood Count 24.7 K/mcL (4.3-11.1)
[2019-12-12 07:27] LABS: Calcium 8.6 mg/dL (8.6-10.3); Magnesium 2.3 mg/dL (1.6-2.6); Potassium 3.8 mEq/L (3.5-5.1)
[2019-12-12 08:11] LABS: Anisocytosis 1+ (Not Present); Macrocytosis Present (Not Present); Monocytes # 1.5 K/mcL (0.0-1.3); Neutrophils # 22.2 K/mcL (1.6-8.9); Platelet Estimate Increased (Normal); Polychromasia 1+ (Not Present)
[2019-12-12] MEDS: Aspirin Enteric Coated 81 MG Tablet PO SCH (08:53)
[2019-12-12] MEDS: predniSONE 10 MG TABLET PO SCH (08:53)
[2019-12-12] MEDS: Metoprolol XL (24 HR) Succ 25 MG TAB.ER.24H PO SCH (08:54)
[2019-12-12] MEDS ORDERED: 0.9 % Sodium Chloride 1,000 ML IVC SCH (12:30)
[2019-12-12] MEDS: Fluconazole 100 MG TABLET PO SCH (13:14)
[2019-12-12] MEDS: *HR* FentaNYL PATCH 75 MCG PATCH TD SCH (16:16)
[2019-12-12] MEDS ORDERED: *HR* LORazepam 2 MG/ML VIAL IVP ONE (17:06)
[2019-12-12] MEDS: *HR* Heparin 5,000 UNIT/ML VIAL SQ SCH (17:42)
[2019-12-12] MEDS: Iron Sucrose Complex 200 MG in 0.9 % Sodium Chloride 100 ML IVPB SCH (20:13)
[2019-12-12] MEDS: INSULIN PUMP SQ SCH (20:14)
[2019-12-12] MEDS: traZODone 50 MG TABLET PO SCH (21:02)
[2019-12-12] MEDS: rOPINIRole 1 MG TABLET PO SCH (21:11)
[2019-12-13 03:22] LABS: Basophils # 0.1 K/mcL (0.0-0.2); Basophils % 0.2 %; Eosinophils % 0.1 %; Hematocrit 24.9 % (35.3-44.9); Hemoglobin 7.5 g/dL (11.5-15.4); Immature Granulocytes % 3.1 % (0-4); Lymphocytes # 0.6 K/mcL (0.6-4.6); Lymphocytes % 2.3 %; Mean Corpuscular HGB Conc 30.1 g/dL (31.6-35.5); Mean Corpuscular Hemoglobin 27.1 pg (28.0-33.3); Mean Corpuscular Volume 89.9 fL (83.0-100.0); Mean Platelet Volume 10.1 fL (9.4-12.4); Neutrophils # 21.7 K/mcL (1.6-8.9); Nucleated Red Blood Cells 6.8 /100 WBC (0); Platelet Count 624 K/mcL (140-400); Red Blood Count 2.77 M/mcL (3.82-4.97); Red Cell Distribution Width 14.9 % (11.5-14.5); Segmented Neutrophils % 87.3 %; White Blood Count 24.9 K/mcL (4.3-11.1)
[2019-12-13 03:24] LABS: Potassium 3.6 mEq/L (3.5-5.1)
[2019-12-13 03:41] LABS: Monocytes # 1.7 K/mcL (0.0-1.3)
[2019-12-13] MEDS: Piperacillin/Tazobactam 3.375 GM in 0.9 % Sodium Chloride Mini Bag 100 ML IVPB SCH ×3 (03:53→20:51)
[2019-12-13 04:02] LABS: Anisocytosis 1+ (Not Present); Macrocytosis Present (Not Present); Platelet Estimate Increased (Normal); Polychromasia 1+ (Not Present)
[2019-12-13] MEDS: *HR* Heparin 5,000 UNIT/ML VIAL SQ SCH ×2 (04:02→17:07)
[2019-12-13] MEDS: Metoprolol XL (24 HR) Succ 25 MG TAB.ER.24H PO SCH (08:53)
[2019-12-13] MEDS: Aspirin Enteric Coated 81 MG Tablet PO SCH (08:54)
[2019-12-13] MEDS: Fluconazole 100 MG TABLET PO SCH (08:55)
[2019-12-13] MEDS: predniSONE 10 MG TABLET PO SCH (08:55)
[2019-12-13 11:50] LABS: Complement C3 98 mg/dL (87-200)
[2019-12-13 18:24] LABS: Bilirubin,Urine Negative (Negative); Blood,Urine Small (Negative); Clarity,Urine Clear (Clear); Color,Urine Yellow (Yellow); Glucose,Urine (UA) Normal (Normal); Ketones,Urine Trace mg/dL (Negative); Leukocyte Esterase,Urine Negative (Negative); Nitrite,Urine Negative (Negative); Protein,Urine 70 mg/dL (Neg-Trace); RBC,Urine 0-3 per hpf (0-3); Specific Gravity,Urine 1.029 (1.010-1.025); Squamous Epithelial Cell,Urine Few per hpf (None-Few); Urobilinogen,Urine Normal (Normal); WBC,Urine 0-3 per hpf (0-3)
[2019-12-13 18:37] LABS: Sodium, Urine 10.5 mEq/L
[2019-12-13] MEDS: Albumin 25% 25gram/100mL 25 GM/100 ML IV.SOLN IVPB SCH ×2 (20:46→23:15)
[2019-12-13] MEDS: rOPINIRole 1 MG TABLET PO SCH (20:51)
[2019-12-13] MEDS: traZODone 50 MG TABLET PO SCH (20:51)
[2019-12-13] MEDS: INSULIN PUMP SQ SCH (20:52)
[2019-12-13] MEDS: Morphine Sulfate Oral CONC 10 MG/0.5 ML ORAL.SYG SL PRN (21:08)
[2019-12-13] MEDS: Iron Sucrose Complex 200 MG in 0.9 % Sodium Chloride 100 ML IVPB SCH (22:21)
[2019-12-14] MEDS: *HR* Heparin 5,000 UNIT/ML VIAL SQ SCH ×3 (04:56→17:17)
[2019-12-14] MEDS: Piperacillin/Tazobactam 3.375 GM in 0.9 % Sodium Chloride Mini Bag 100 ML IVPB SCH ×3 (04:56→20:13)
[2019-12-14 05:48] LABS: Hemoglobin 8.6 g/dL (11.5-15.4)
[2019-12-14 05:50] LABS: Hematocrit 27.6 % (35.3-44.9); Mean Corpuscular HGB Conc 31.2 g/dL (31.6-35.5); Mean Corpuscular Hemoglobin 28.5 pg (28.0-33.3); Mean Corpuscular Volume 91.4 fL (83.0-100.0); Monocytes # 1.8 K/mcL (0.0-1.3); Nucleated Red Blood Cells 8.5 /100 WBC (0); Platelet Count 583 K/mcL (140-400); Red Blood Count 3.02 M/mcL (3.82-4.97); Red Cell Distribution Width 16.3 % (11.5-14.5)
[2019-12-14 05:54] LABS: White Blood Count 30.1 K/mcL (4.3-11.1)
[2019-12-14 06:10] LABS: Albumin 3.9 g/dL (3.5-5.7); Calcium 8.7 mg/dL (8.6-10.3); Magnesium 2.7 mg/dL (1.6-2.6); Phosphorous 3.2 mg/dL (2.7-4.5); Potassium 3.8 mEq/L (3.5-5.1)
[2019-12-14 06:14] LABS: Anisocytosis 1+ (Not Present); Lymphocytes # 1.8 K/mcL (0.6-4.6); Macrocytosis Present (Not Present); Neutrophils # 26.5 K/mcL (1.6-8.9); Platelet Estimate Increased (Normal); Polychromasia 1+ (Not Present)
[2019-12-14 07:59] LABS: Albumin/Globulin Ratio 1.6 (1.1-2.2); Bilirubin,Direct 1.7 mg/dL (0.0-0.2); Bilirubin,Indirect 0.6 mg/dL (0.0-1.0); Bilirubin,Total 2.3 mg/dL (0.3-1.0); Globulin 2.5 g/dL (2.4-3.5); Total Protein 6.4 g/dL (6.4-8.9)
[2019-12-14] MEDS: Metoprolol XL (24 HR) Succ 25 MG TAB.ER.24H PO SCH (08:40)
[2019-12-14] MEDS: Aspirin Enteric Coated 81 MG Tablet PO SCH (08:40)
[2019-12-14] MEDS: predniSONE 10 MG TABLET PO SCH (08:41)
[2019-12-14] MEDS: Fluconazole 200 MG/100 ML 200 MG/100 ML BAG IVPB SCH (08:42)
[2019-12-14] MEDS: Albumin 25% 25gram/100mL 25 GM/100 ML IV.SOLN IVPB SCH (08:43)
[2019-12-14] MEDS: Ondansetron 4 MG/2 ML VIAL IVP PRN (20:12)
[2019-12-14] MEDS: traZODone 50 MG TABLET PO SCH (20:12)
[2019-12-14] MEDS: Iron Sucrose Complex 200 MG in 0.9 % Sodium Chloride 100 ML IVPB SCH (20:12)
[2019-12-14] MEDS: INSULIN PUMP SQ SCH (20:13)
[2019-12-14] MEDS: rOPINIRole 1 MG TABLET PO SCH (20:13)
[2019-12-15] MEDS: Ondansetron 4 MG/2 ML VIAL IVP PRN ×2 (03:06→09:23)
[2019-12-15] MEDS: Piperacillin/Tazobactam 3.375 GM in 0.9 % Sodium Chloride Mini Bag 100 ML IVPB SCH ×2 (04:36→12:04)
[2019-12-15] MEDS: *HR* Heparin 5,000 UNIT/ML VIAL SQ SCH (04:36)
[2019-12-15] MEDS: Aspirin Enteric Coated 81 MG Tablet PO SCH (07:27)
[2019-12-15] MEDS: predniSONE 10 MG TABLET PO SCH (07:27)
[2019-12-15] MEDS: Metoprolol XL (24 HR) Succ 25 MG TAB.ER.24H PO SCH (07:27)
[2019-12-15] MEDS: Fluconazole 200 MG/100 ML 200 MG/100 ML BAG IVPB SCH (07:28)
[2019-12-15 07:29] LABS: Albumin 3.4 g/dL (3.5-5.7); Albumin/Globulin Ratio 1.5 (1.1-2.2); Bilirubin,Total 2.5 mg/dL (0.3-1.0); Globulin 2.2 g/dL (2.4-3.5); Potassium 3.9 mEq/L (3.5-5.1); Total Protein 5.6 g/dL (6.4-8.9)
[2019-12-15 11:42] VITALS: BP 133/66
[2019-12-15] MEDS: Morphine Sulfate Oral CONC 10 MG/0.5 ML ORAL.SYG SL PRN (12:02)
[2019-12-15 12:52] LABS: Hemoglobin 7.9 g/dL (11.5-15.4); Mean Platelet Volume 10.3 fL (9.4-12.4)
[2019-12-15 12:53] LABS: Hematocrit 25.6 % (35.3-44.9); Mean Corpuscular HGB Conc 30.9 g/dL (31.6-35.5); Mean Corpuscular Hemoglobin 28.8 pg (28.0-33.3); Mean Corpuscular Volume 93.4 fL (83.0-100.0); Nucleated Red Blood Cells 12.8 /100 WBC (0); Platelet Count 434 K/mcL (140-400); Red Blood Count 2.74 M/mcL (3.82-4.97); Red Cell Distribution Width 19.7 % (11.5-14.5)
[2019-12-15 12:54] LABS: INR 1.5; Prothrombin Time 17.2 Seconds (9.4-12.1)
[2019-12-15 13:13] LABS: Anisocytosis 1+ (Not Present); Lymphocytes # 1.9 K/mcL (0.6-4.6); Monocytes # 0.6 K/mcL (0.0-1.3); Neutrophils # 28.5 K/mcL (1.6-8.9); Platelet Estimate Increased (Normal); Polychromasia 2+ (Not Present)
[2019-12-15 13:14] LABS: Reactive Lymphocytes Present (Not Present)
[2019-12-15] MEDS ORDERED: Albumin 25% 25gram/100mL 25 GM/100 ML IV.SOLN IVPB SCH (18:00)
[2019-12-15] MEDS ORDERED: Furosemide 20 MG/2 ML VIAL IVP SCH (20:00)
[2019-12-15 23:48] LABS: Kappa Qnt Free Light Chains 61.69 mg/L (3.30-19.40); Lambda Qnt Free Light Chains 44.22 mg/L (5.71-26.30)
[2019-12-16] MEDS ORDERED: Piperacillin/Tazobactam 3.375 GM in 0.9 % Sodium Chloride Mini Bag 100 ML IVPB SCH
[2019-12-16 08:38] LABS: Serine Protease-3 Antibody 0 AU/mL (0-19)
[2019-12-16 08:39] LABS: ANA IgG by ELISA NONE DETECTED (None Detected)
[2019-12-16 16:04] LABS: CK-BB (CK isoenzymes) 9 % (0-0); CK-MB (CK isoenzymes) 0 % (0-4); CK-MM (CK-isoenzymes) 91 % (96-100)
[2019-12-17 09:28] LABS: CK Total (Ck Isoenzymes) 137 U/L (20-180)
[2019-12-17 18:05] LABS: Alpha 2 Globulin (PEP) 1.03 g/dL (0.48-1.05); Beta Globulin (PEP) 0.71 g/dL (0.48-1.10)
[2019-12-18 08:38] LABS: Immunoglobulin A 370 mg/dL (68-408); Immunoglobulin G 513 mg/dL (768-1632); Immunoglobulin M 115 mg/dL (35-263)
[2019-12-18 08:41] LABS: IFE Reflexed IFE Done
== END 2019-12-15 16:16 | disposition hospice, home (50) | DRG 329 ==
LOC: EMEROOARM 08:15 → 3BNU 08:15 → SUATTDRO 11:45 → 3BNU 12:36 → 2ANU 12-03 17:05 → SUATTDRO 12-03 17:30 → 2ANU 12-05 10:12
PROVIDERS: ADMIT Internal Medicine; ATTEND Internal Medicine
PROC: IRLIVER (2019-12-04 12:00)
PROC: ENDOCBX (2019-12-04 13:00)